=== PATIENT | male | born 1960 | race Caucasian/White ===

== ENCOUNTER → 2019-05-12 09:55 | Outpatient (CLI) | payer OTHER, SELFPAY ==
--- NOTE | 2019-05-12 11:31 | DI.CT.S_ITS ---
PROCEDURE: CT ABDOMEN PELVIS WO/W CON INDICATIONS: hematuria, unspecified TECHNIQUE: Optional 5 mm thick noncontrast images acquired from the diaphragm to the symphysis pubis. After the administration of intravenous contrast, 5 mm thick images acquired from the diaphragm to the symphysis pubis after a 10-minute delay. 2 mm thick coronal and sagittal reformats were then performed of the kidneys and ureters. For radiation dose reduction, the following was used: automated exposure control, adjustment of mA and/or kV according to patient size. COMPARISON: None. FINDINGS: Image quality: Excellent. Lung bases: Lung bases are clear. Heart size is normal. Urinary system: Both kidneys are normal in size, without hydronephrosis or nephrolithiasis on pre-contrast images. No perinephric fat stranding. There is normal bilateral renal enhancement. Renal calyces appear normal in morphology when filled with contrast. Opacified portions of both ureters demonstrate normal caliber. The left mid to distal ureter is unopacified but nondilated. The ureterovesicular junction the right demonstrates very slight thickening of the urinary bladder wall at this location. The bladder wall anteriorly and is mildly thickened and slightly irregular. Paratracheal perivesicular inflammatory changes just cranial to the anterior bladder. No gas within the urinary bladder. No discrete bladder mass or debris Other solid organs: Liver is normal in size and enhancement. Mild hepatic hypodensity diffusely. Punctate calcifications scattered throughout the liver and spleen consistent with healed granulomatous disease. Gallbladder is surgically absent. Biliary system is non dilated. Pancreas enhances normally. Spleen is enlarged measuring 13.5 cm in length and is normal in enhancement. No adrenal nodules. Peritoneum and bowel: There is a moderate length, approximately 10 cm, the segments of mid sigmoid colon which demonstrates prominent circumferential wall thickening, mild hyperemia of adjacent vasculature, and mild pericolonic inflammation and thickening of the adjacent fascia. Additionally, there is a short segment of broad-based attachment of the caudal colon wall with the anterior bladder wall (series 5 image 60). This was present on the prior study and is likely chronic. Stomach, small bowel, and other colonic loop seen demonstrate normal wall thickness and caliber. No free fluid or air. Nodes and vessels: No retroperitoneal or mesenteric adenopathy by size criteria. Aorta and inferior vena cava are normal in size. Abdominal wall: No ventral hernias. Pelvis: No pathologic free pelvic fluid. No inguinal hernias or adenopathy. Bones: A single nonspecific rounded lucent lesion in the left ilium above the sacroiliac joint measures 8 mm. No other suspicious bone lesions.. No vertebral body compression fractures. IMPRESSION: 1. Mild thickening of the anterior urinary bladder wall suspicious for cystitis. Potentially a cause of hematuria. 2. Circumferential thickening for moderate length segment of sigmoid colon with a short segment of probable colonic wall adherence to the urinary bladder wall anteriorly. Chronic inflammatory changes of the colon may be causing reactive cystitis. No bladder gas to suggest fistulization. 3. Changes to the sigmoid colon to suggest chronic inflammation, however only a few diverticula are seen. These changes are suspicious for low-grade inflammation, but also suspicious for neoplasm. Colonoscopy is recommended if not recently performed. 4. Kidneys and proximal collecting system appears normal. 5. Nonspecific round subcentimeter lucent lesion in the left ilium is nonspecific. 6. Mildly enlarged spleen, etiology uncertain. This may be physiologic for the patient. Correlate clinically. Dictated by: Venus Vu M.D. on 05/12/2019 at 11:38 Approved by: Venus Vu M.D. on 05/12/2019 at 11:53
== END ==
PROVIDERS: PCP Family Medicine; Visit Provider Specialist
DX: R31.9 Hematuria, unspecified (principal); K50.00 Crohn's disease of small intestine without complications; K63.9 Disease of intestine, unspecified; R16.1 Splenomegaly, not elsewhere classified
CPT/HCPCS: 36415; 74178; 80048; Q9967

== ENCOUNTER → 2019-05-12 10:40 | Outpatient (CLI) | payer OTHER, SELFPAY ==
[2019-05-12 11:26] LABS: Blood Urea Nitrogen 22 mg/dL (9-20); Calcium 9.7 mg/dL (8.4-10.2); Carbon Dioxide 30 mmol/L (22-32); Chloride 102 mmol/L (98-107); Estimated Glomerular Filt Rate > 60.0 mL/min (>60); Glucose 101 mg/dL (80-110); HEMOLYSIS < 15 (0-50); Potassium 5.3 mmol/L (3.4-5.1); Sodium 140 mmol/L (137-145)
== END ==
PROVIDERS: PCP Family Medicine; Visit Provider Specialist
DX: R31.9 Hematuria, unspecified (principal); K50.00 Crohn's disease of small intestine without complications
CPT/HCPCS: 36415; 80048

== ENCOUNTER → 2019-10-10 11:49 | Outpatient (CLI) | payer OTHER, SELFPAY ==
--- NOTE | 2019-10-10 | DI.RAD.S_ITS ---
PROCEDURE: XR KUB INDICATIONS: KIDNEY STONES TECHNIQUE: One view of the abdomen acquired. COMPARISON: [facility], CT, CT ABDOMEN PELVIS WO/W CON, 05/12/2019, 11:35. FINDINGS: Surgical changes and devices: None. Bowel: Bowel gas pattern is normal. Soft tissues: No suspicious abdominal calcifications. Visualized solid organ contours appear normal in size. Bones: No suspicious bony lesions. IMPRESSION: No urinary tract stone found. Surgical clips right upper quadrant indicate prior cholecystectomy. Dictated by: Arjun El M.D. on 10/10/2019 at 12:13 Approved by: Arjun El M.D. on 10/10/2019 at 12:15
[2019-10-10 13:42] LABS: Calcium 9.9 mg/dL (8.4-10.2); Uric Acid 6.9 mg/dL (3.5-8.5)
[2019-10-10 14:14] LABS: Prostate Specific Antigen 0.593 ng/mL (0.10-4.00)
[2019-10-14 14:15] LABS: Parathyroid Hormone Int 53 pg/mL (14-64)
== END ==
PROVIDERS: Family Provider Family Medicine; PCP Family Medicine; Visit Provider Specialist
DX: N20.0 Calculus of kidney (principal); N40.0 Benign prostatic hyperplasia without lower urinary tract symptoms; Z90.49 Acquired absence of other specified parts of digestive tract
CPT/HCPCS: 36415; 74018; 82310; 83970; 84153; 84550

== ENCOUNTER → 2020-07-07 11:26 | Outpatient (CLI) | payer OTHER, SELFPAY ==
--- NOTE | 2020-07-07 11:29 | DI.MRI.S_ITS ---
PROCEDURE: MR HEAD/BRAIN WO/W CON INDICATIONS: Muscle weakness generalized TECHNIQUE: Noncontrast axial T1 spin echo, axial T2 fast spin echo, sagittal and axial FLAIR, coronal T2 fast spin echo, axial gradient echo, axial diffusion and ADC through the brain. After the administration of contrast, axial and coronal 3D VIBE or T1 spin echo with fat saturation through the brain. COMPARISON: None. FINDINGS: Image quality: Excellent. CSF Spaces: Basal cisterns are patent. No extra-axial fluid collections. Ventricles are normal in size and shape. Brain: No midline shift. No intracranial bleeds or masses. No abnormal intracranial enhancement. The brainstem appears normal. Diffusion-weighted images demonstrate no acute ischemic insults. No chronic ischemic insults. Normal intravascular flow voids are present. Skull and face: Calvarial marrow is normal in signal. Orbits appear normal. Sinuses: Sinuses and mastoids appear clear. IMPRESSION: Normal for age, source of generalized weakness is not identified. Dictated by: Arjun El M.D. on 07/07/2020 at 13:07 Approved by: Arjun El M.D. on 07/07/2020 at 13:13
--- NOTE | 2020-07-07 11:29 | DI.MRI.S_ITS ---
PROCEDURE: MR CERVICAL SPINE WO/W CON INDICATIONS: Muscle weakness generalized TECHNIQUE: Noncontrast sagittal T1 spin echo and T2 fast spin echo, sagittal STIR, foraminal oblique sagittal T2 fast spin echo, axial gradient echo or T2 fast spin echo through the cervical spine. After the administration of contrast, axial and sagittal T1 spin echo with fat saturation through the cervical spine. COMPARISON: None. FINDINGS: Image quality: Excellent. Alignment and curvature: There is normal bony alignment. Marrow: Marrow is normal in overall signal, without suspicious enhancement. Spinal cord: Visualized spinal cord has no evidence of intrinsic lesion such as infection or neoplasm but is severely compressed at points as discussed above. No cerebellar tonsillar herniation. No abnormal intramedullary enhancement. Paraspinous soft tissues: No paravertebral masses or suspicious enhancement. C2-3: Moderate degenerative disc disease, and along the dorsal aspect of the right margin of the spinal column there is what appears to be an extruded longitudinally oriented cephalad-directed large disc herniation tracking from C3-4 along the posterior right vertebral body of C3 and along the posterior lower right vertebral body of C2.. C3-4: Degenerative disc disease is severe and sagittal postcontrast T1 imaging allows visualization of continuous extension of what appears to be disc material from the disc space cephalad beneath the right margin of the posterior longitudinal ligament, producing a mass effect distorting and displacing the right anterior sore vocal cord along the right C3 and right C2 vertebral body. This causes focal right-sided moderately severe spinal stenosis distorting the right anterior cervical cord along that area.. C4-5: A posterior transverse broad-based disc bulge is present, without herniation, combining with facet hyperostosis and ligamentum flavum hypertrophy to produce severe spinal stenosis significantly distorting the cord at this level, flattening it both anteriorly and posteriorly. Facet osteoarthritis and on go vertebral degenerative change produces severe bilateral foraminal stenosis at this level, also.. C5-6: Degenerative disc disease is moderate in severity, and there is a posterior broad-based transverse disc bulge. Facet and uncovertebral osteoarthritis contribute to the presence of moderately severe bilaterally symmetric foraminal stenosis, and also moderate anterior spinal stenosis effacing CSF from much of the thecal sac at this level and moderately distorting the cervical cord. C6-7: Moderate degenerative disc disease, posterior broad-based transverse disc bulge. Moderate bilateral facet and uncovertebral osteoarthritis, and the AP dimension of the cervical cord at this level is moderately stenosed. There is [id number] foraminal stenosis from facet hyperostosis at this level, but no free herniated disc fragment. C7-T1: Mild degenerative disc disease, mild facet osteoarthritis. No spinal stenosis found. No definite foraminal stenosis identified. IMPRESSION: The degree of degeneration and spinal/foraminal stenosis along the cervical spine in this patient is quite severe, and includes sequela of disc herniation, facet hyperostosis, posterior disc bulging, and oncovertebral degenerative hyperostosis also to produce multilevel spinal and foraminal stenosis including severe spinal stenosis as described. An unusual finding is associated with the disc disease on the right at C3-C4 where a contiguous disc herniation appears to extruded and migrate cephalad adjacent to the posterior longitudinal ligament on the right dorsal to the right C3 and right C2 vertebral bodies producing eccentric right-sided predominant spinal stenosis through that area. The severity of spinal stenosis over the upper half of the cervical spine is a likely etiology for reported generalized muscle weakness. There is no suspicion for intrinsic lesion involving the cervical cord, or underlying multiple sclerosis. Please also refer to reports from brain MRI without and with contrast same day. Surgical consultation likely is warranted based on these findings. Dictated by: Arjun El M.D. on 07/07/2020 at 16:49 Approved by: Arjun El M.D. on 07/07/2020 at 17:02
== END ==
PROVIDERS: Family Provider Family Medicine; PCP Internal Medicine; Referring Provider Internal Medicine; Visit Provider Internal Medicine
DX: M62.81 Muscle weakness (generalized) (principal); M48.02 Spinal stenosis, cervical region; M50.31 Other cervical disc degeneration, high cervical region; M50.21 Other cervical disc displacement, high cervical region
CPT/HCPCS: 70553; 72156

== ENCOUNTER → 2021-01-27 17:11 | Outpatient (CLI) | payer OTHER, SELFPAY ==
--- NOTE | 2021-01-27 | DI.MRI.S_ITS ---
PROCEDURE: MR CERVICAL SPINE WO CON INDICATIONS: ABNORMAL REFLEX TECHNIQUE: Noncontrast sagittal T1 spin echo and T2 fast spin echo, sagittal STIR, foraminal oblique sagittal T2 fast spin echo, and axial gradient echo or T2 fast spin echo through the cervical spine. COMPARISON: None. FINDINGS: Image quality: Excellent. Alignment and Curvature: Trace degenerative retrolisthesis of C3 on C4. Bone Marrow: Marrow demonstrates normal overall signal. Spinal Cord: There is significant cord compression, eccentric to the right, extending from just above C2-C3 disc through C4-C5. There is cord signal abnormality consistent with myelomalacia centered at C3-C4. No cerebellar tonsillar herniation. Paraspinous Soft Tissues: No paravertebral masses. Prevertebral soft tissues are normal in thickness. C2-C3: Large right paracentral osteophyte severely narrows the right hemicanal. Mild bilateral foraminal narrowing. C3-C4: Large diffuse bulky osteophyte, right significantly greater than left, results in marked stenosis of the right side of the canal and severe stenosis of the left side of the canal. There is myelomalacia. There is severe bilateral foraminal narrowing with bilateral foraminal C4 nerve root impingement. C4-C5: Bulky posterior osteophyte, eccentric to the right, results in severe canal stenosis. There is severe bilateral foraminal narrowing with bilateral foraminal nerve root impingement. C5-C6: This level is not as severe as the 2 above it. However, there is diffuse posterior osteophyte which narrows the AP dimension of the canal to 7 mm, consistent with severe canal stenosis. There is moderate to severe bilateral foraminal narrowing with bilateral foraminal C6 nerve root impingement. C6-C7: Bulky posterior disc plus osteophyte results in moderate central canal stenosis and severe bilateral lateral recess stenosis. There is moderate to severe bilateral foraminal narrowing. There is flattening deformity on the exiting bilateral C7 nerve roots. C7-T1: No central canal stenosis. Right foramen is patent. There is moderate left foraminal narrowing with flattening deformity on the exiting left C8 nerve root. IMPRESSION: 1. Multilevel canal stenosis as described above. It is severe at C2-C3. At C3-C4, there is marked stenosis of the right side of the canal and severe stenosis of the left side of the canal. There is severe canal stenosis at C4-C5 and C5-C6. There is moderate central canal stenosis and severe bilateral lateral recess stenosis at C6-C7. 2. There is cord signal abnormality consistent with myelomalacia centered at C3-C4. 3. Significant multilevel foraminal narrowing as described above. Dictated by: Eleazar Heredia M.D. on 01/27/2021 at 21:06 Approved by: Eleazar Heredia M.D. on 01/27/2021 at 21:18
--- NOTE | 2021-01-27 | DI.MRI.S_ITS ---
PROCEDURE: MR THORACIC SPINE WO CON INDICATIONS: ABNORMAL REFLEX TECHNIQUE: Noncontrast sagittal T1 spine echo and T2 fast spin echo, sagittal STIR, axial T1 and T2 fast spin echo through the thoracic spine. COMPARISON: None. FINDINGS: Image quality: Excellent. Alignment and Curvature: There is normal bony alignment. Bone Marrow: Marrow is of normal overall signal. No acute vertebral body compression fractures. Spinal Cord: Visualized spinal cord is normal in size and signal. Paraspinous Soft Tissues: No paravertebral masses. Miscellaneous: On axial images, central canal and foramina appear widely patent at all scanned levels. IMPRESSION: Unremarkable thoracic spine MRI. No evidence of disc herniation, canal stenosis, or foraminal stenosis. Dictated by: Eleazar Heredia M.D. on 01/27/2021 at 21:05 Approved by: Eleazar Heredia M.D. on 01/27/2021 at 21:06
== END ==
PROVIDERS: Family Provider Family Medicine; PCP Internal Medicine; Referring Provider Psychiatry & Neurology Neuromuscular Medicine; Visit Provider Psychiatry & Neurology Neuromuscular Medicine
DX: R29.2 Abnormal reflex (principal); M48.02 Spinal stenosis, cervical region
CPT/HCPCS: 72141; 72146